=== PATIENT | male | born 1965 | race Caucasian/White ===

== ENCOUNTER 2016-10-17 11:48 | Emergency (ER) | payer SELFPAY ==
[~2016-10-17] VITALS: Ht 167.6 cm; Wt 62.0 kg
[~2016-10-17 11:48] MED LIST: LISI-515 PO
[2016-10-17 11:50] VITALS: BP 144/95; PULSE 84; RESP 12; TEMP 98.1; O2SAT 99
[2016-10-17 12:49] VITALS: BP 190/91; PULSE 72; RESP 18; TEMP 98.4; O2SAT 97
[2016-10-17] MEDS ORDERED: CLIN1CAP5 PO (13:09)
[2016-10-17] MEDS ORDERED: IBUP800T23 PO (13:09)
[2016-10-17] MEDS ORDERED: MAGICADU2 SWISH-SWAL (13:09)
[2016-10-17] MEDS ORDERED: PERI0.126 SWISH-SPIT (13:09)
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
[2016-10-17] MEDS ORDERED: SILVER SULFADIAZINE 1% CR 50 GM JAR TOPICAL ONE (13:15)
[2016-10-17] MEDS ORDERED: IBUPROFEN 800 MG TAB PO ONE (13:15)
[2016-10-17] MEDS ORDERED: KETOROLAC TROMETHAMINE 60 MG/2 ML (IM) VIAL IM ONE (13:45)
[2016-10-17 14:39] VITALS: BP 156/64; TEMP 98.3
[2016-11-23] MEDS ORDERED: IBUP800T23 PO (10:15)
[2016-11-23] MEDS ORDERED: SERO50TA PO (10:15)
== END 2016-10-17 14:30 | disposition home or self-care (01) ==
LOC: NEPB 11:48
DX: T24.011D Burn of unspecified degree of right thigh, subsequent encounter (principal); F17.210 Nicotine dependence, cigarettes, uncomplicated; K02.9 Dental caries, unspecified; B95.62 Methicillin resistant Staphylococcus aureus infection as the cause of diseases classified elsewhere; V99.XXXD Unspecified transport accident, subsequent encounter
CPT/HCPCS: 16020; 86403; 87070; 87186; 96372; 99284; J1885